=== PATIENT | female | born 1955 | race African-American/Black ===

== ENCOUNTER 2019-12-17 20:08 | Emergency (ER) | payer BC ==
[~2019-12-17] VITALS: Ht 175.3 cm; Wt 70.8 kg
[~2019-12-17 20:08] MED LIST: ACYCLOVIR 800800 M1 PO; ADULT LOW DOSE81 MG; CLARITIN-D 121 EACH; CRESTOR40 MG; FLEXERIL PO; NAPROXEN 500MG500 MG PO; NOHOMEMEDICATIONS; ZOVIRAX 5% OINT15 G1; [UNRECOGNIZED DRUG - OTHER]
[2019-12-17] MEDS ORDERED: VITAMIN D21250 MC1 PO (20:26)
[2019-12-17] MEDS ORDERED: ASA81BEC PO (20:26)
[2019-12-17 20:56] LABS: ABSOLUTE NEUTROPHILS 7.6 thou/uL (1.4-8.2); BASOPHILS 0.5 % (0.0-2.0); EOSINOPHILS 1.4 % (0.0-3.0); HEMATOCRIT 38.7 % (37.0-47.0); HEMOGLOBIN 13.3 gm/dL (12.0-15.0); LYMPHOCYTES 13.7 % (24.0-44.0); MCH 31.3 pg (26.0-34.0); MCHC 34.3 g/dL (28.0-37.0); MCV 91.1 fL (80.0-100.0); PLATELET COUNT 203 thou/uL (150-400); POLYS 78.4 % (36.0-66.0); RBC 4.25 mil/uL (4.20-5.00); RDW 13.8 % (10.5-14.5); WBC 9.7 thou/uL (4.0-11.0)
[2019-12-17 21:05] LABS: ANION GAP 8 mmol/L (7-16); BUN 19 mg/dL (7-18); CALCIUM 8.6 mg/dL (8.5-10.1); CHLORIDE 98 mmol/L (98-107); CO2 28 mmol/L (21-32); GLUCOSE 96 mg/dL (74-106); POTASSIUM 3.8 mmol/L (3.5-5.1); SODIUM 134 mmol/L (136-145)
[2019-12-17 21:15] LABS: ALBUMIN 4.1 g/dL (3.4-5.0); SGOT 16 U/L (15-37); SGPT 27 U/L (30-65); TOTAL BILIRUBIN 0.2 mg/dL (0.2-1.0); TOTAL PROTEIN 7.9 g/dL (6.4-8.2); TROPONIN-I <0.06 ng/mL (<0.06)
[2019-12-17 21:18] LABS: TSH 1.573 uIU/mL (0.358-3.740)
[2019-12-17 21:25] LABS: URINE BILIRUBIN NEGATIVE (Negative); URINE BLOOD TRACE (Negative); URINE CLARITY CLEAR; URINE COLOR YELLOW; URINE GLUCOSE-RANDOM* NEGATIVE (Negative); URINE KETONES NEGATIVE (Negative); URINE NITRITE-REFLEX NEGATIVE (Negative); URINE PROTEIN (DIPSTICK) NEGATIVE (Negative); URINE SPECIFIC GRAVITY <= 1.005 (1.005-1.035); URINE UROBILINOGEN 0.2 E.U./dl (0.2-1.0)
[2019-12-17 21:26] LABS: URINE LEUKOCYTES-REFLEX 1+ (Negative)
[2019-12-17 21:37] LABS: BACTERIA-REFLEX 1-9 Few /HPF (None Seen); CASTS None Seen /LPF (None Seen); CRYSTALS None Seen /LPF (None Seen); SQUAMOUS 4-10 Moderate /LPF (0-3); URINE RBC 0-2 Rare /HPF (0-2); URINE WBC-REFLEX 0-5 Rare /HPF (0-5)
[2019-12-17 22:46] VITALS: BP 132/84
--- NOTE | 2019-12-18 08:44 | EKG ---
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 /EPI
== END 2019-12-17 23:28 | disposition home or self-care (01) ==
LOC: ER 20:08
PROVIDERS: Student in an Organized Health Care Education/Training Program
DX: R50.9 Fever, unspecified (principal); R11.0 Nausea; R06.02 Shortness of breath; R05 Cough; R53.1 Weakness; Z20.828 Contact with and (suspected) exposure to other viral communicable diseases; Z79.899 Other long term (current) drug therapy; Z79.82 Long term (current) use of aspirin; Z86.718 Personal history of other venous thrombosis and embolism; Z88.1 Allergy status to other antibiotic agents; Z88.0 Allergy status to penicillin; Z88.8 Allergy status to other drugs, medicaments and biological substances